=== PATIENT | male | born 1945 | race Caucasian/White ===

== ENCOUNTER 2017-09-21 13:43 | Outpatient (CLI) | payer MEDICARE | END 2017-09-21 13:44 | disposition home or self-care (01) | LOC: BICULT 13:43 | PROVIDERS: ATTEND Otolaryngology Plastic Surgery within the Head & Neck | DX: E04.1 Nontoxic single thyroid nodule (principal); N20.0 Calculus of kidney; E04.2 Nontoxic multinodular goiter; N28.89 Other specified disorders of kidney and ureter | CPT/HCPCS: 74018; 76536 ==

== ENCOUNTER 2017-09-28 09:12 | Outpatient (CLI) | payer MEDICARE ==
[2017-09-28 10:06] LABS: Platelet Count 217 thou/uL (130-400)
--- NOTE | 2017-09-28 11:12 | RAD ---
ABDOMEN 1 VIEW: HISTORY: Calculus of ureter. COMPARISON: None. FINDINGS: Projecting in the expected location of left ureter at the left L4 transverse process is a 6 x 9 mm ov oid calculus. No dilated air-filled loops of large or small bowel. Phleboliths in the pelvis. IMPRESSION: A 6 x 9 mm calculus projecting over the expected location of the left ureter at the L4 transverse pro cess. POS: [facility]
== END 2017-09-28 09:13 | disposition home or self-care (01) ==
LOC: RAD 09:12
PROVIDERS: ATTEND Urology
DX: N20.1 Calculus of ureter (principal)
CPT/HCPCS: 74018; 85576

== ENCOUNTER 2017-09-29 09:34 | Day surgery (SDC) | payer MEDICARE ==
[2017-09-28 17:25] VITALS: BMI 28.7
[2017-09-29] MEDS ORDERED: Fentanyl 100 MCG/2 ML VIAL ONE ×2 (13:21→15:22)
--- NOTE | 2017-09-29 13:59 | RAD ---
KUB: 09/29/2017 HISTORY: Preoperative patient. History of calculus of ureter. COMPARISON: 09/28/2017 FINDINGS: There is a calcification overlying the left L5 transverse process, measuring approximately 1 cm in cr aniocaudal dimension, unchanged, suggesting a stone within the left ureter. Numerous pelvic calcific ations suggest phleboliths, unchanged. There are degenerative changes involving the bilateral hips. There is significant stool seen through out the colon. The bowel gas pattern is nonobstructed. IMPRESSION: Stable KUB demonstrating a 1 cm calcification, adjacent to the left L5 transverse process, suggesting a stone within the left ureter. POS: [facility]
[2017-09-29] MEDS ORDERED: HYDROcodone/Acetaminophen 5/325 mg Tablet ONE (16:12)
[2017-09-29] MEDS ORDERED: Lidocaine 1% PF 5 ML VIAL ONE (16:43)
[2017-09-29] MEDS ORDERED: PROPOFOL 200 MG/20 ML VIAL ONE (16:43)
[2017-09-29] MEDS ORDERED: ePHEDrine/0.9% NaCl/PF SYRINGE 50 mg/10 ml ONE (16:43)
--- NOTE | 2017-09-29 21:35 | OP ---
DATE OF PROCEDURE: 09/29/2017 PREOPERATIVE DIAGNOSIS: Left ureteral stone. POSTOPERATIVE DIAGNOSIS: Left ureteral stone. PROCEDURE PERFORMED: Left ESWL. SURGEON: Dr. Checo Ku ANESTHETIC: General. ESTIMATED BLOOD LOSS: Not recorded. FINDINGS: There is a 9 mm left ureteral stone mid ureter treated with 3000 shocks at kV level of 5 w ith good fragmentation. A stent was not placed. OPERATIVE TECHNIQUE: After obtaining the written and verbal consent from the patient, after document ing normal preoperative blood work and making sure we can see the stone on the KUB, he was taken to [facility] operating suite. He was placed in supine position on the treatment table. PlexiPulses placed on his lower extremities and turned on. He was given a general anesthetic, oral obturator intubation. He was coupled with . The stone was placed in treatment for focal point and shockwave therapy was commenced. Fluoroscopy was used intermittently to document stone fragmentation and to reposition as necessary. A total of 3000 shocks were given. The stone did appear to start fragmenting up the right from the beginning of the treatment and spread out along the ureter and we treated this area un til we could see no visible fragments remaining. At this point, the patient was awakened, extubated, and taken by stretcher to the recovery room.
== END 2017-09-29 16:45 | disposition home or self-care (01) ==
LOC: SDC 09:34
PROVIDERS: ATTEND Urology
PROC: 0TF4XZZ Fragmentation in Left Kidney Pelvis, External Approach (ICD-10-PCS; principal; 2017-09-29)
DX: N20.1 Calculus of ureter (principal); I10 Essential (primary) hypertension; M19.90 Unspecified osteoarthritis, unspecified site; E78.00 Pure hypercholesterolemia, unspecified; E78.5 Hyperlipidemia, unspecified; G89.29 Other chronic pain; M54.9 Dorsalgia, unspecified; Z79.899 Other long term (current) drug therapy
CPT/HCPCS: 74018; J2001; J2270; J2704; J3010

== ENCOUNTER 2017-10-01 14:34 | Day surgery (SDC) | payer MEDICARE ==
[2017-10-01] MEDS ORDERED: CEFAZOLIN/Water 2 GM/20 ML SYRINGE ONE (15:51)
[2017-10-01] MEDS ORDERED: Fentanyl 250 MCG/5 ML VIAL ONE (16:50)
[2017-10-01] MEDS ORDERED: Iothalamate Meglumine 60% 50 ML VIAL FS ONE (17:14)
[2017-10-01] MEDS ORDERED: SUGAMMADEX SODIUM 200 MG/2 ML VIAL ONE (17:59)
--- NOTE | 2017-10-01 19:28 | RAD ---
RETROGRADE LEFT UROGRAM 10/01/17 HISTORY: Left ureteral stent placement. History of calculus of ureter. COMPARISON: 09/28/17. FINDINGS/IMPRESSION: The previously seen calcification likely related to left ureteral calculus at the level of the L4 tra nsverse process on prior study is not visualized on this exam. The left ureter is cannulated, and the re is mild left hydronephrosis and hydroureter. Final image demonstrates a left ureteral stent in saira ce. Correlation with intraoperative findings is recommended. POS: [facility]
--- NOTE | 2017-10-02 00:27 | OP ---
DATE OF PROCEDURE: 10/01/2017 PREOPERATIVE DIAGNOSES: Left ureteral stones, left renal colic. POSTOPERATIVE DIAGNOSES: Left ureteral stones, left renal colic. PROCEDURES: Cystoscopy, left retrograde stent, evacuation of stones bladder. SURGEON: Checo Ku M.D. ANESTHESIA: General. ESTIMATED BLOOD LOSS: Minimal. FINDINGS: There is no stricture disease. There was large trilobar BPH, two ureteral orifices, a num kimberly of small stone fragments from ESWL 2 days ago on the floor of the bladder. Retrograde studies st ill showed some fragments up in the mid ureter where the initial stone was causing some hydro. A 6 x 24 double-J stent was placed, no string was attached. The stones were given to the patient's , and I would expect him to pass more fragments and was sent them off together for analysis in a week o r so. OPERATIVE TECHNIQUE: Obtain written verbal consent from the patient, after receiving IV antibiotics, he was taken to the operating suite. He was placed in the supine position on the treatment table. PlexiPulses placed on his lower extremities and turned on. He was given a general anesthetic, oral o bturator intubation, placed in the dorsal lithotomy position, sterilely prepped and draped. Cystosco py performed with a 22-Hungarian sheath, well lubricated, passed through direct vision through the male urethra into the urinary bladder with aid of a 30-degree lens, video camera and monitor. Bladder was filled and emptied a number of times and examined with 30 and 70-degree lens. Underground Drill Operator KB was taken to the fluoroscopy unit. I went ahead and flushed a 5-Hungarian Pollack catheter with contrast, placed in the left ureteral orifice, injected contrast in retrograde manners, filling out the left ureter. Th ere was some filling defects seen still at the site of the original stone some hydro above this. Shun dewire was fed by this easily. Open-ended catheter was removed. The stent was placed over the guide wire, pushed in place with aid of pushers, so its proximal end coiled in the renal pelvis and the dis soto end coiled in the bladder when the wires removed. We then went ahead and used the [employer] evacuato r to evacuate the small stones fragments out of the urinary bladder and these were sent and . H e was taken out of the dorsal lithotomy position, awakened, extubated, and taken by stretcher to the recovery room.
== END 2017-10-01 22:40 | disposition home or self-care (01) ==
LOC: SDC 14:34
PROVIDERS: ATTEND Urology
PROC: 0T778DZ Dilation of Left Ureter with Intraluminal Device, Via Natural or Artificial Opening Endoscopic (ICD-10-PCS; principal; 2017-10-01)
DX: N20.1 Calculus of ureter (principal); I10 Essential (primary) hypertension; E78.00 Pure hypercholesterolemia, unspecified; M19.90 Unspecified osteoarthritis, unspecified site; Z98.890 Other specified postprocedural states
CPT/HCPCS: 51798; 74420; C1758; J2270; J3010; Q9961

== ENCOUNTER 2017-10-11 08:08 | Day surgery (SDC) | payer MEDICARE ==
[2017-10-08 16:33] VITALS: BMI 28.7
[2017-10-11] MEDS ORDERED: CEFAZOLIN/Water 2 GM/20 ML SYRINGE ONE (10:28)
[2017-10-11 10:33] LABS: Anion Gap 9 mmol/L (10-20); BUN (Urea Nitrogen) 13 mg/dL (8.4-25.7); Calc. Creatinine Clearance 103 mL/min (70-130); Calcium 9.4 mg/dL (7.8-10.44); Carbon Dioxide 31 mmol/L (23-31); Chloride 106 mmol/L (98-107); Estimated GFR-MDRD Greater than 90; Glucose 95 mg/dL (83-110); Potassium 3.9 mmol/L (3.5-5.1); Sodium 142 mmol/L (136-145)
[2017-10-11] MEDS ORDERED: Iothalamate Meglumine 60% 50 ML VIAL FS ONE (10:43)
[2017-10-11] MEDS ORDERED: Fentanyl 250 MCG/5 ML VIAL ONE (10:43)
--- NOTE | 2017-10-11 13:22 | OP ---
DATE OF PROCEDURE: 10/11/2017 PREOPERATIVE DIAGNOSES: Left ureteral stones, left ureteral stent. POSTOPERATIVE DIAGNOSES: Left ureteral stones, left ureteral stent. PROCEDURE PERFORMED: Cysto, discontinue left stent, left retrograde, left rigid ureteroscopy, stone retrieval, stent replacement. SURGEON: Dr. Checo Ku. ANESTHETIC: General. SPECIMENS REMOVED: Stones which were given to his as already sent off for analysis from those h e passed in the office. DRAINS PLACED: A 4.8 x 26 cm double-J stent with string attached to it. OPERATIVE TECHNIQUE: Obtained written and verbal consent from the patient after receiving IV antibio tics, he was taken to the operating suite. He was placed in supine position on the treatment table. PlexiPulses were placed on his lower extremities and turned on. He was given a general anesthetic, oral obturator intubation, placed in the dorsal lithotomy position, sterilely prepped and draped. Cy stoscopy was performed with a 22 Telugu sheath. It was passed, well lubricated through the male uret hra into the bladder with the aid of a video camera monitor and a 30-degree lens. The bladder was fi lled and emptied a couple of times renal stones in the floor of the bladder. The indwelling stent wa s grasped and brought out through the urethral meatus and then discarded. A 5 Telugu Pollack cathete r was placed into the left ureteral orifice. Contrast injected in a retrograde manner showed some fi lling defects in the lower third of the left ureter. Guidewire was fed up past this. We went up wit h a small caliber graduated rigid ureteroscope and none of these fragments were that large. We baske preston them and dropped them into the bladder. We then went ahead and went all the way up to the UPJ by feeding at another guidewire through the rigid scope and then following that guidewire up. There we re no other stones noted. There was a little bit of narrowing where the initial stone had been in th e mid ureter. We then went ahead and backed the scope out removing it leaving one guidewire in. We then backloaded the guidewire through the cystoscope and passed over that. A 5-Telugu Pollack cathet er removed that catheter and injected contrast filling out the entire collecting system and ureters, no extravasation. No filling defects seen. His CAT scan showed no renal stones, but just the ureter al stone. At this point, the wire was replaced and the stent was passed over the guidewire, pushing up in place with aid of a pusher, so its proximal end coiled in the renal pelvis and its distal end c oiled in the bladder when the wire was removed. At this point, we elliked out the stone fragments an d placement of dry cup given to his as we sent them off from those he past already. The patient was taken out of dorsal lithotomy position, awakened, extubated, and taken by stretcher to the [facility] room.
--- NOTE | 2017-10-11 13:40 | RAD ---
LEFT RETROGRADE IVP: HISTORY: left ureteric calculus. FINDINGS/IMPRESSION: Ten spot fluoroscopic images during a left-sided retrograde pyelogram demonstrates opacification of t he left pelvocaliceal system and ureter without persistent filling defects. There is contrast in the bladder. POS: [facility]
== END 2017-10-11 16:10 | disposition home or self-care (01) ==
LOC: SDC 08:08
PROVIDERS: ATTEND Urology
PROC: 0TC78ZZ Extirpation of Matter from Left Ureter, Via Natural or Artificial Opening Endoscopic (ICD-10-PCS; principal; 2017-10-11)
PROC: 0T778DZ Dilation of Left Ureter with Intraluminal Device, Via Natural or Artificial Opening Endoscopic (ICD-10-PCS; 2017-10-11)
DX: N20.1 Calculus of ureter (principal); I10 Essential (primary) hypertension; H40.9 Unspecified glaucoma; E78.00 Pure hypercholesterolemia, unspecified; M19.90 Unspecified osteoarthritis, unspecified site; E04.1 Nontoxic single thyroid nodule; Z98.890 Other specified postprocedural states
CPT/HCPCS: 51798; 74420; 80048; 93005; 93010; C1758; J3010; Q9961

== ENCOUNTER 2018-07-05 16:09 | Outpatient (CLI) | payer MEDICARE ==
[2018-07-05 17:33] LABS: #Basophils 0.1 thou/uL (0.0-0.2); #Eosinphils 0.3 thou/uL (0.0-0.7); #Lymphocytes 1.9 thou/uL (1.20-3.40); #Monocytes 0.8 thou/uL (0.11-0.59); #Neutrophils 4.4 thou/uL (1.40-6.50); %Basophils 1.1 % (0.0-1.0); %Eosinophils 4.1 % (0.0-10.0); %Monocytes 10.4 % (0.0-10.0); %Neutrophils 58.4 % (42.0-75.0); Hemoglobin 16.5 g/dL (14.0-18.0); Mean Corpuscular HGB CONC 34.5 g/dL (32.0-36.0); Mean Corpuscular Hemoglobin 30.6 pg (27.0-31.0); Mean Corpuscular Volume 88.7 fL (78.0-98.0); Platelet Count 234 thou/uL (130-400); RBC Distribution Width 12.2 % (11.5-14.5); White Blood Cell (WBC) Count 7.5 thou/uL (4.8-10.8)
[2018-07-05 18:18] LABS: ALT (SGPT) 28 U/L (8-55); AST (SGOT) 24 U/L (5-34); Albumin 4.5 g/dL (3.4-4.8); Alkaline Phosphatase 78 U/L (40-150); Anion Gap 12 mmol/L (10-20); BUN (Urea Nitrogen) 16 mg/dL (8.4-25.7); Bilirubin, Total 0.6 mg/dL (0.2-1.2); Calc. Creatinine Clearance 0 mL/min (70-130); Calcium 9.5 mg/dL (7.8-10.44); Carbon Dioxide 29 mmol/L (23-31); Chloride 103 mmol/L (98-107); Estimated GFR-MDRD 89; Globulin 2.7 g/dL (2.4-3.5); Glucose 94 mg/dL (83-110); Potassium 3.8 mmol/L (3.5-5.1); Protein, Total 7.2 g/dL (5.8-8.1); Sodium 140 mmol/L (136-145)
--- NOTE | 2018-07-06 22:04 | EKG ---
Test Reason : Blood Pressure : / mmHG Vent. Rate : 054 BPM Atrial Rate : 054 BPM P-R Int : 180 ms QRS Dur : 086 ms QT Int : 416 ms P-R-T Axes : 041 065 056 degrees QTc Int : 394 ms Sinus bradycardia Otherwise normal ECG When compared with ECG of 11-OCT-2017 10:03, No significant change was found Confirmed by Berny MÁRQUEZ ([id number]) on 07/06/2018 10:03:52 PM Referred By: MARTHA Confirmed By:Berny MÁRQUEZ
== END 2018-07-05 16:10 | disposition home or self-care (01) ==
LOC: LABBT 16:09
PROVIDERS: ATTEND Surgery
DX: Z01.818 Encounter for other preprocedural examination (principal); K40.90 Unilateral inguinal hernia, without obstruction or gangrene, not specified as recurrent
CPT/HCPCS: 80053; 85025; 93005; 93010

== ENCOUNTER 2018-07-06 11:34 | Day surgery (SDC) | payer MEDICARE ==
[2018-07-05 16:45] VITALS: BMI 28.3
[2018-07-06] MEDS ORDERED: Fentanyl 100 MCG/2 ML VIAL ONE ×4 (11:52→14:23)
[2018-07-06] MEDS ORDERED: Lidocaine 2% Jelly 5 ML TUBE ONE (11:55)
[2018-07-06] MEDS ORDERED: CEFAZOLIN 2 GM/50 ML BAG ONE (12:20)
[2018-07-06] MEDS ORDERED: Ondansetron PF 4 MG/2 ML Vial ONE ×2 (13:51→16:59)
[2018-07-06] MEDS ORDERED: HYDROcodone/Acetaminophen 5/325 mg Tablet ONE (16:30)
[2018-07-06] MEDS ORDERED: PROPOFOL 200 MG/20 ML VIAL ONE (16:59)
[2018-07-06] MEDS ORDERED: Lidocaine 1% PF 5 ML VIAL ONE (16:59)
[2018-07-06] MEDS ORDERED: Dexamethasone 20 MG/5 ML VIAL ONE (16:59)
[2018-07-06] MEDS ORDERED: Glycopyrrolate 0.2 MG/ML 5 ML SYRINGE ONE (16:59)
[2018-07-06] MEDS ORDERED: ePHEDrine/0.9% NaCl/PF SYRINGE 50 mg/10 ml ONE (16:59)
--- NOTE | 2018-07-06 17:39 | OP ---
DATE OF PROCEDURE: 07/06/2018 PREOPERATIVE DIAGNOSES: Right inguinal hernia and squamous cell carcinoma, right forearm. PROCEDURES PERFORMED: 1. Right inguinal hernia repair with mesh. 2. Excision of squamous cell carcinoma, right forearm. INDICATIONS: A 72-year-old male with enlarging painful right inguinal hernia, also had biopsies of lesion on his right forearm, has squamous cell carcinoma. FINDINGS: There was a right direct inguinal hernia, 8 mm nodule, right anterior forearm. DESCRIPTION OF PROCEDURE: After informed consent was obtained, the patient was taken to the operating room and given general endotracheal anesthesia, he was placed in the supine position. His groin and forearm were prepped and draped in the usual fashion. Local anesthesia was infiltrated subcutaneously and deep, transverse right inguinal incision was performed with subcu device sharply. The fascia of the external oblique was incised in direction of its fibers to the external ring. Spermatic cord was isolated with a Doland drain. Cremasteric fibers were . There was a hernia sac that really originated from the direct component. This was from the cord structures down to the internal ring and was reduced. Reduction was maintained with a PHS hernia system. Posterior layer was placed in the preperitoneal space, anterior was laid out, sutured to the pubic tubercle with 2-0 Prolene suture, laterally it was tucked under the external oblique fascia. A notch was cut out for the spermatic cord. Hemostasis was achieved by electrocautery. External oblique fascia was closed with a running 3-0 Vicryl. Francisco J's closed with interrupted 3-0 Vicryl and skin closed with a running subcuticular 4-0 Rapide. Steri-Strips applied. Sterile bandage applied. Then, an elliptical incision was performed in the right forearm. The lesion was excised, marked with a Prolene suture to the medial. Sent to Pathology for further analysis. Hemostasis was achieved by electrocautery. Subcu was reapproximated with interrupted 3-0 Vicryl. Skin was closed with a running subcuticular 4-0 Rapide. Steri-Strips applied. Sterile bandage applied. The patient tolerated the procedure well and transferred to recovery in good condition. Sponge and needle count verified correct x2. Job ID: [id number]
--- NOTE | 2018-07-13 05:19 | PQF ---
[facility] POST DISCHARGE CLINICAL DOCUMENTATION IMPROVEMENT CLARIFICATION FORM l Todays Date: 07/12/18 l Patients Name UMBERTO GARRETT JR l l Admit Date 07/06/18 l Disch Date 07/06/18 In Store Marketer Name Ash Milner Email: [email or web address]: [phone] To be completed by In Store Marketer: Present Clinical Indicators - Signs / Symptoms Results and Location in Medical Record [ ] Documentation of: [ ] [ ] Documentation of: [ ] [ ] Documentation of: [ ] [ ] Documentation of: [ ] [ ] Risks [ ] [ ] [ ] Treatment [ ] SQUAMOUS CELL CARCINOMA R FOREARM QUERY FOR SIZE OF EXCISED LESION WITH MARGINS [ ] [ ] To be completed by Physician: AMADO SADLER The documentation in this patients record requires clarification to ensure coding compliance and accuracy. Check the appropriate box and include in your discharge summary. [ x] ____cancer biopsied by [employer] Consultant, Excision 2.8 by 1.1 by 0.5cm, No residual cancer [ ] [ ] [ ] Please check this box if this does not apply to this patient [ ] Unable to determine [ ] Other diagnosis: Review the following information and exercise your independent professional judgment in responding to the clarification. Based upon the clinical findings, risk factors, and treatment, please clarify if you are treating one of the above probable or suspected diagnoses. Physician Signature: Date Time MTDD
== END 2018-07-06 17:45 | disposition home or self-care (01) ==
LOC: SDC 11:34
PROVIDERS: ATTEND Surgery
PROC: 0YU50JZ Supplement Right Inguinal Region with Synthetic Substitute, Open Approach (ICD-10-PCS; principal; 2018-07-06)
PROC: 0HBDXZZ Excision of Right Lower Arm Skin, External Approach (ICD-10-PCS; 2018-07-06)
DX: K40.90 Unilateral inguinal hernia, without obstruction or gangrene, not specified as recurrent (principal); C44.622 Squamous cell carcinoma of skin of right upper limb, including shoulder; E78.00 Pure hypercholesterolemia, unspecified; M19.90 Unspecified osteoarthritis, unspecified site; I10 Essential (primary) hypertension; Z79.82 Long term (current) use of aspirin; Z79.899 Other long term (current) drug therapy
CPT/HCPCS: 11603; 49505; 88305; 96374; C1781; J1100; J2001; J2405; J2704; J3010

== ENCOUNTER 2018-07-10 20:08 | Emergency (ER) | payer MEDICARE ==
[~2018-07-10 20:08] MED LIST: Iopamidol 370 76% 100 ML VIAL ONE
[2018-07-10 20:51] LABS: #Eosinphils 0.1 thou/uL (0.0-0.7); #Lymphocytes 1.4 thou/uL (1.20-3.40); #Monocytes 1.2 thou/uL (0.11-0.59); #Neutrophils 10.4 thou/uL (1.40-6.50); %Basophils 0.2 % (0.0-1.0); %Eosinophils 0.8 % (0.0-10.0); %Lymphocytes 10.8 % (21.0-51.0); %Neutrophils 79.2 % (42.0-75.0); Hemoglobin 16.6 g/dL (14.0-18.0); Mean Corpuscular Volume 88.6 fL (78.0-98.0); Mean Platelet Volume 8.3 fL (7.4-10.4); Platelet Count 244 thou/uL (130-400); RBC Distribution Width 12.1 % (11.5-14.5); Red Blood Cell (RBC) Count 5.35 mill/uL (4.70-6.10); White Blood Cell (WBC) Count 13.1 thou/uL (4.8-10.8)
[2018-07-10 21:00] LABS: Bilirubin Negative (Negative); Blood, Urine Negative (Negative); Clarity CLOUDY (Clear); Glucose, Urine (Dipstick) Negative (Negative); Leukocyte Negative (Negative); Nitrite Negative (Negative); Protein, Urine (Dipstick) Negative (Neg-Trace); Specific Gravity, Urine 1.003 (1.002-1.036); Urobilinogen 0.2 mg/dL (0.2-1.0)
[2018-07-10 21:13] LABS: ALT (SGPT) 24 U/L (8-55); AST (SGOT) 21 U/L (5-34); Albumin 4.6 g/dL (3.4-4.8); Alkaline Phosphatase 78 U/L (40-150); Anion Gap 14 mmol/L (10-20); BUN (Urea Nitrogen) 9 mg/dL (8.4-25.7); Bilirubin, Total 1.2 mg/dL (0.2-1.2); Calc. Creatinine Clearance 0 mL/min (70-130); Calcium 9.8 mg/dL (7.8-10.44); Carbon Dioxide 29 mmol/L (23-31); Chloride 99 mmol/L (98-107); Estimated GFR-MDRD Greater than 90; Globulin 3.1 g/dL (2.4-3.5); Glucose 116 mg/dL (83-110); Potassium 3.6 mmol/L (3.5-5.1); Protein, Total 7.7 g/dL (5.8-8.1); Sodium 138 mmol/L (136-145)
--- NOTE | 2018-07-10 21:15 | RAD ---
ACUTE ABDOMINAL SERIES: 07/10/2018 HISTORY: Abdominal pain. The patient had a hernia repair five days ago. Constipation since surgery. FINDINGS: CHEST: The cardiac silhouette and pulmonary vasculature are within normal limits. The lungs are ang ar. Mild degenerative changes are seen in the thoracic spine. The osseous structures are intact. ABDOMEN UPRIGHT AND SUPINE VIEWS: The bowel gas pattern is overall nonspecific. Mild gaseous disten tion is seen in the region of the hepatic flexure. Multiple phleboliths overly the pelvis and were a lso seen on the study of 04/14/2018. Calcification overlying the inferior pole of the left renal sha kevin is again present. Degenerative changes are noted in the spine. IMPRESSION: 1. Nonspecific bowel gas pattern. 2. Suggestion of punctate calcification overlying the inferior pole, left renal shadow. POS: [facility]
--- NOTE | 2018-07-10 22:12 | CT ---
CT ABDOMEN AND PELVIS WITH IV CONTRAST: 07/10/2018 HISTORY: Constipation for four days. Urinary frequency and urinary retention. Abdominal pain. COMPARISON: Noncontrast CT abdomen and pelvis from 09/25/2017. Contrast study on 05/04/2017. FINDINGS: A small bleb is seen at the left lung base with minimal dependent atelectasis bilaterally. The previously noted obstructing proximal left ureteral calculus is no longer visualized, likely rela preston to interval treatment. There is no hydronephrosis present on the left. A nonobstructing inferio r pole left renal calculus is present, measuring 4 mm. The liver, spleen, pancreas, bilateral adrenal glands, right kidney, and urinary bladder demonstrate a normal CT appearance. There is a small amount of retained fecal material seen within the colon with fluid seen extending fr om the region of the cecum to the splenic flexure. The small bowel is normal in caliber. The duodenal diverticulum again involves the second portion of the duodenum. Vascular calcifications are seen in the abdominal aorta and involving the iliac arteries. A retroaor tic left renal vein is present. The appendix is visualized and is normal in caliber. There is no free fluid, fluid collection, or lymphadenopathy seen in the abdomen or pelvis. There is inflammatory stranding seen in the region of the right inguinal canal with subcutaneous emph ysema also present in this region and a small amount of fluid in the right inguinal canal. Findings may be related to the patient's recent hernia surgery, but clinical correlation is recommended. Ther e is no fluid collection seen in this region to suggest an abscess. There is a punctate focus of gas seen within the right lateral hemipelvis, which abuts the level of the right inguinal canal and is a lso likely attributable to recent post surgical change. No other interval change. IMPRESSION: 1. Subcutaneous inflammatory stranding and emphysema, as well as punctate foci of gas in the right l ateral aspect of the pelvis. These findings are likely related to recent post surgical changes, and clinical correlation is suggested. There is no fluid collection seen to suggest an abscess. 2. Nonobstructing left renal calculus. 3. Previously seen left ureteral calculus is no longer visualized, likely related to interval treatm ent. 4. Small amount of retained fecal material seen within the colon, predominantly in the region of the rectum. The cecum and transverse colon are predominantly fluid and gas filled. POS: [facility]
== END 2018-07-10 22:41 | disposition home or self-care (01) ==
LOC: ERS 20:08
DX: R33.9 Retention of urine, unspecified (principal); R35.0 Frequency of micturition; I10 Essential (primary) hypertension; E78.00 Pure hypercholesterolemia, unspecified; F41.9 Anxiety disorder, unspecified; Z79.899 Other long term (current) drug therapy; Z79.82 Long term (current) use of aspirin
CPT/HCPCS: 51702; 74022; 74177; 80053; 81003; 85025

== ENCOUNTER 2018-09-15 13:28 | Outpatient (CLI) | payer MEDICARE ==
--- NOTE | 2018-09-15 16:15 | ULT ---
THYROID ULTRASOUND: COMPARISON: 09/21/2017. HISTORY: Thyroid nodules and goiter. TECHNIQUE: Multiplanar, soto scale, and color Doppler images were obtained in a thyroid ultrasound. FINDINGS: There are multiple small nodules in the left lobe of the thyroid. There is a large stable mixed leandro d/cystic nodule in the right lobe of the thyroid. This measures 3.4 x 3.1 x 2.9 cm in size and does not contain suspicious moderate calcifications. This nodule is isoechoic to the thyroid parenchyma a nd is well circumscribed. The thyroid lobes measure 4.0 and 4.9 cm in length on the right and left, respectively. IMPRESSION: Stable multinodular thyroid. POS: [facility]
== END 2018-09-15 13:29 | disposition home or self-care (01) ==
LOC: BICULT 13:28
PROVIDERS: ATTEND Otolaryngology Plastic Surgery within the Head & Neck
DX: E04.1 Nontoxic single thyroid nodule (principal); E04.2 Nontoxic multinodular goiter
CPT/HCPCS: 76536

== ENCOUNTER 2019-09-19 14:44 | Outpatient (CLI) | payer MEDICARE ==
--- NOTE | 2019-09-19 15:45 | ULT ---
THYROID ULTRASOUND: HISTORY: Thyroid nodule. COMPARISON: 09/15/2018 study. FINDINGS: Real-time imaging of the right and left lobes of the gland were performed. The right lobe measures 3 x 3.3 x 5.9 cm and the left lobe 1.6 x .9 x 5 cm. There are several small thyroid nodules identifie d. The larger nodule is a 3.1 x 2.5 x 3.9 cm nodule. Measurements obtained on the prior examination are approximately 3.1 x 3.4 x 2.9 cm. This is not felt to represent a significant change. IMPRESSION: Stable bilateral thyroid nodules. POS: [facility]
== END 2019-09-19 14:45 | disposition home or self-care (01) ==
LOC: BICULT 14:44
PROVIDERS: ATTEND Otolaryngology Plastic Surgery within the Head & Neck
DX: E04.2 Nontoxic multinodular goiter (principal)
CPT/HCPCS: 76536

== ENCOUNTER 2021-01-21 13:35 | Outpatient (CLI) | payer MEDICARE | END 2021-01-21 13:36 | disposition home or self-care (01) | LOC: LABBT 13:35 | PROVIDERS: ATTEND Orthopaedic Surgery | DX: Z01.818 Encounter for other preprocedural examination (principal); S83.241A Other tear of medial meniscus, current injury, right knee, initial encounter | CPT/HCPCS: 80048; 81001; 85025; 85610; 86850; 86900; 86901; 93005; 93010 ==

== ENCOUNTER 2021-01-24 07:28 | Day surgery (SDC) | payer MEDICARE ==
[2021-01-21 15:03] LABS: #Eosinphils 0.3 10x3/uL (0.0-0.5); #Monocytes 0.8 10x3/uL (0.0-1.1); #Neutrophils 4.8 10x3/uL (1.5-8.4); %Basophils 0.5 % (0.0-2.0); %Eosinophils 3.6 % (0.0-6.0); %Lymphocytes 24.7 % (18.0-47.0); %Monocytes 9.6 % (0.0-10.0); %Neutrophils 61.3 % (40.0-75.0); Hemoglobin 16.1 g/dL (13.5-17.5); Mean Corpuscular HGB CONC 34.5 g/dL (32.0-36.0); Mean Corpuscular Volume 86.9 fl (81.2-95.1); Mean Platelet Volume 10.8 fl (7.4-10.4); Platelet Count 217 10x3/uL (150-450); Red Blood Cell (RBC) Count 5.36 10x6/uL (4.32-5.72); White Blood Cell (WBC) Count 7.9 10x3/uL (3.5-10.5)
[2021-01-21 15:16] LABS: Bilirubin Neg (Negative); Blood, Urine Negative (Negative); Clarity Clear (Clear); Glucose, Urine (Dipstick) Normal (Negative); Ketone, Urine Negative (Negative); Leukocyte Negative (Negative); Nitrite Negative (Negative); Protein, Urine (Dipstick) Negative (Neg-Trace); Urobilinogen Normal mg/dL (Less than 2)
[2021-01-21 15:20] LABS: Anion Gap 14 mmol/L (10-20); BUN (Urea Nitrogen) 12 mg/dL (8.4-25.7); Calc. Creatinine Clearance 0 mL/min (70-130); Calcium 9.5 mg/dL (7.8-10.44); Carbon Dioxide 31 mmol/L (23-31); Chloride 102 mmol/L (98-107); Glucose 73 mg/dL (83-110); Potassium 3.3 mmol/L (3.5-5.1); Sodium 144 mmol/L (136-145)
[2021-01-21 15:25] LABS: Prothrombin Time 10.9 sec (9.5-12.1)
[2021-01-21 15:59] LABS: RBC/HPF 0-3 HPF (0-3); Squamous Epithelial None Seen HPF (0-3); WBC/HPF None Seen HPF (0-3)
[2021-01-21 16:00] LABS: Bacteria/HPF None Seen HPF (None Seen)
[2021-01-23 10:34] VITALS: BMI 27.6
[2021-01-24] MEDS ORDERED: PROPOFOL 20 ML ONE (08:25)
[2021-01-24] MEDS ORDERED: Acetaminophen 500 MG TAB ONE (08:29)
[2021-01-24] MEDS ORDERED: Bupivacaine 0.25% HCL 30 ML VIAL ONE (09:45)
[2021-01-24] MEDS ORDERED: EPINEPHrine 1 MG/ML AMP ONE (09:45)
[2021-01-24] MEDS ORDERED: Bupivacaine PF 0.5% 30 ML VIAL ONE (09:45)
[2021-01-24] MEDS ORDERED: Fentanyl 100 MCG/2 ML VIAL ONE (09:54)
[2021-01-24] MEDS ORDERED: Lidocaine 2% w/Epinephrine 1:200K 20 ML VIAL ONE (10:10)
[2021-01-24] MEDS ORDERED: PROPOFOL 200 MG/20 ML VIAL ONE (10:10)
[2021-01-24] MEDS ORDERED: Bupivacaine HCl 0.5%/Epinephrine 1:200,000/PF 30 ml Vial ONE (10:10)
[2021-01-24] MEDS ORDERED: Ondansetron PF 4 MG/2 ML Vial ONE (10:10)
[2021-01-24] MEDS ORDERED: Lidocaine 1% PF 5 ML VIAL ONE (10:10)
== END 2021-01-24 14:50 | disposition home or self-care (01) ==
LOC: SDC 07:28
PROVIDERS: ATTEND Orthopaedic Surgery
PROC: 0SBC4ZZ Excision of Right Knee Joint, Percutaneous Endoscopic Approach (ICD-10-PCS; principal; 2021-01-24)
DX: M23.321 Other meniscus derangements, posterior horn of medial meniscus, right knee (principal); M23.8X1 Other internal derangements of right knee; E78.5 Hyperlipidemia, unspecified; I10 Essential (primary) hypertension; M19.90 Unspecified osteoarthritis, unspecified site; G89.29 Other chronic pain; M54.9 Dorsalgia, unspecified; E78.00 Pure hypercholesterolemia, unspecified; N52.9 Male erectile dysfunction, unspecified; Z79.82 Long term (current) use of aspirin; Z79.899 Other long term (current) drug therapy; Z88.8 Allergy status to other drugs, medicaments and biological substances
CPT/HCPCS: 80048; 81001; 85025; 85610; 86850; 86900; 86901; J0171; J0690; J2405; J2704; J3010; S0020

== ENCOUNTER 2021-02-04 15:30 | Outpatient (CLI) | payer MEDICARE | END 2021-02-04 15:31 | disposition home or self-care (01) | LOC: ULT 15:30 | PROVIDERS: ATTEND Orthopaedic Surgery | DX: M79.661 Pain in right lower leg (principal) ==

== ENCOUNTER 2022-03-20 10:23 | Outpatient (CLI) | payer MEDICARE ==
[2022-03-20 12:06] LABS: Hemoglobin 16.3 g/dL (13.5-17.5); Mean Corpuscular HGB CONC 35.4 g/dL (32.0-36.0); Mean Corpuscular Hemoglobin 30.6 pg (27.0-33.0); Mean Corpuscular Volume 86.5 fl (81.2-95.1); Mean Platelet Volume 11.2 fl (7.4-10.4); Platelet Count 213 10x3/uL (150-450); RBC Distribution Width 13.8 % (11.5-14.5); Red Blood Cell (RBC) Count 5.32 10x6/uL (4.32-5.72); White Blood Cell (WBC) Count 8.2 10x3/uL (3.5-10.5)
[2022-03-20 12:16] LABS: Bilirubin Neg (Negative); Blood, Urine Negative (Negative); Clarity Clear (Clear); Glucose, Urine (Dipstick) Normal (Negative); Ketone, Urine Negative (Negative); Leukocyte 25 (Negative); Nitrite Negative (Negative); PTT 26.8 sec (22.0-33.0); Protein, Urine (Dipstick) Negative (Neg-Trace); Prothrombin Time 10.7 sec (9.5-12.1); Specific Gravity, Urine 1.015 (1.002-1.036); Urobilinogen Normal mg/dL (Less than 2)
[2022-03-20 12:19] LABS: Anion Gap 14 mmol/L (10-20); BUN (Urea Nitrogen) 12 mg/dL (8.4-25.7); Calc. Creatinine Clearance 0 mL/min (70-130); Calcium 9.4 mg/dL (7.8-10.44); Carbon Dioxide 29 mmol/L (23-31); Chloride 104 mmol/L (98-107); Estimated GFR 89; Glucose 87 mg/dL (83-110); Potassium 3.9 mmol/L (3.5-5.1); Sodium 143 mmol/L (136-145)
[2022-03-20 12:31] LABS: Bacteria/HPF None Seen HPF (None Seen); RBC/HPF 0-3 HPF (0-3); Squamous Epithelial 0-3 HPF (0-3)
== END 2022-03-20 10:24 | disposition home or self-care (01) ==
LOC: LABBT 10:23
PROVIDERS: ATTEND Urology
DX: Z01.818 Encounter for other preprocedural examination (principal); Z20.822 Contact with and (suspected) exposure to COVID-19
CPT/HCPCS: 80048; 81001; 85027; 85610; 85730; 86850; 86900; 86901; 87086; 87811; 93005; 93010

== ENCOUNTER 2022-03-29 12:15 | Emergency (ER) | payer MEDICARE | END 2022-03-29 15:33 | disposition home or self-care (01) | LOC: ERS 12:15 | DX: N47.1 Phimosis (principal); I10 Essential (primary) hypertension; E78.00 Pure hypercholesterolemia, unspecified; Z79.899 Other long term (current) drug therapy | CPT/HCPCS: 99283 ==

== ENCOUNTER 2022-07-06 11:22 | Outpatient (CLI) | payer MEDICARE | END 2022-07-06 11:23 | disposition home or self-care (01) | LOC: RAD 11:22 | PROVIDERS: ATTEND Urology | DX: N20.0 Calculus of kidney (principal); N28.89 Other specified disorders of kidney and ureter | CPT/HCPCS: 36415; 74018; 80048; 81001 ==

== ENCOUNTER 2023-03-30 09:17 | Outpatient (CLI) | payer MEDICARE | END 2023-03-30 09:18 | disposition home or self-care (01) | LOC: BICULT 09:17 | PROVIDERS: ATTEND Internal Medicine | DX: I10 Essential (primary) hypertension (principal); H18.519 Endothelial corneal dystrophy, unspecified eye; E55.9 Vitamin D deficiency, unspecified; E78.00 Pure hypercholesterolemia, unspecified; M17.9 Osteoarthritis of knee, unspecified; M54.50 Low back pain, unspecified; E04.2 Nontoxic multinodular goiter; Z85.820 Personal history of malignant melanoma of skin | CPT/HCPCS: 76536 ==

== ENCOUNTER 2023-07-07 12:51 | Outpatient (CLI) | payer MEDICARE | END 2023-07-07 12:52 | disposition home or self-care (01) | LOC: BICRAD 12:51 | PROVIDERS: ATTEND Urology | DX: N20.0 Calculus of kidney (principal); N28.89 Other specified disorders of kidney and ureter | CPT/HCPCS: 36415; 74018; 80048; 81001; 87086 ==

== ENCOUNTER 2025-03-09 10:55 | Outpatient (CLI) | payer MEDICARE | END 2025-03-09 10:56 | disposition home or self-care (01) | LOC: BICRAD 10:55 | PROVIDERS: ATTEND Urology | DX: N20.0 Calculus of kidney (principal); R35.0 Frequency of micturition | CPT/HCPCS: 74018 ==

== ENCOUNTER 2025-03-28 09:48 | Outpatient (CLI) | payer MEDICARE | END 2025-03-28 09:49 | disposition home or self-care (01) | LOC: RAD 09:48 | PROVIDERS: ATTEND Otolaryngology Plastic Surgery within the Head & Neck | DX: R13.10 Dysphagia, unspecified (principal); R63.30 Feeding difficulties, unspecified | CPT/HCPCS: 74230 ==